=== PATIENT | male | born 1990 | race Caucasian/White ===

== ENCOUNTER 2017-03-01 20:52 | Emergency (ER) | payer SELFPAY ==
--- NOTE | ~2017-03-01 | EKG ---
PATIENT: WALDO PONCE UNIT #: [id number] Ventricular Rate: 81 BPM Atrial Rate: 81 BPM P-R Interval: 158 ms QRS Duration: 96 ms Q-T Interval: 352 ms QTC Calculation(Bezet): 408 ms P Rawson: 73 degrees Calculated R Rawson: 9 degrees Calculated T Rawson: 36 degrees Diagnosis Line: Normal sinus rhythm with sinus arrhythmia Diagnosis Line: Normal ECG Diagnosis Line: No previous ECGs available Diagnosis Line: Confirmed by TANGELA POLLARD MD ([id number]) on 03/05/2017 Diagnosis Line: 8:08:55 AM INTERPRETING MD: ATUL NOGUERA
--- NOTE | ~2017-03-01 | CR72 ---
[facility] A Service of [facility] & [facility] / [facility] RADIOLOGY TEXT RESULTS PATIENT: WALDO PONCE LOCATION: SED : [birth year] UNIT #: [id number] AGE: [address]: Alec Maier MD SEX: M ORDER DR: [id number] [place] [id number] E MR#: [id number] Acc #: [id number] NAME: WALDO PONCE : 1990 SEX: M STUDY DATE/TIME: 03/01/2017 21:13 UNIT: SED ROOM: STUDY DESCRIPTION: CR Chest Single View Portable Attending Physician: Alec Maier M.D. Ordering Physician: Alec Maier M.D. Primary Care Physician: Esperanza Adams M.D., [facility] MEDICAL IMAGING REPORT This report is preliminary unless electronic signature is present. EXAM Portable chest. HISTORY Chest pain and difficulty swallowing since yesterday. FINDINGS Cardiac size and pulmonary vascularity are normal. No infiltrates or effusions. Very mild left upper thoracic curve. IMPRESSION Negative. Dictated by... Zohaib Rivas M.D. THIS IS AN ELECTRONICALLY VERIFIED REPORT Zohaib Rivas M.D. at 03/01/2017 10:56 PM CJ/norma TD: 03/01/2017 22:47 JOB #: [id number] MEDICAL IMAGING REPORT Page 1 of 1
[~2017-03-01 20:52] MED LIST: NO MEDICATIONS; VOLTAREN75 MG PO
[2017-03-01 21:28] LABS: POC - CKMB <1.0 ng/mL (0.0-7.9)
[2017-03-01 21:29] LABS: POC - TROPONIN <0.05 ng/mL (<=0.05)
== END 2017-03-01 22:24 | disposition home or self-care (01) ==
LOC: SED 20:52
PROVIDERS: Emergency Medicine
DX: K21.0 Gastro-esophageal reflux disease with esophagitis (principal); Z88.6 Allergy status to analgesic agent
CPT/HCPCS: 71010; 82553; 84484; 93005; 96374; 96375; 99284; J2405; J2765